=== PATIENT | male | born 1970 | race American Indian/Alaskan Native ===

== ENCOUNTER 2021-05-23 15:57 | Emergency (ER) | payer SELFPAY ==
--- NOTE | 2021-05-23 20:54 | Emergency Department Report ---
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 Patient states that the symptoms of worsening the last 3 days. Patient denies dizziness, syncope, chest pain, shortness of breath, nausea and vomiting, dizziness, syncope, chest pain or shortness of breath, fever and chills or change in vision. MD Complaint: Facial itchy erythematous maculopapular rashes -: Sudden, week(s) (1) Location: face Radiation: non-radiation Severity scale (0 -10): 7 Quality: aching, sharp Consistency: constant Improves with: none Worsens with: none Associated Symptoms: denies other symptoms, rash (facial itchy erythematous maculopapular rashes). denies: confusion, chest pain, cough, diaphoresis, fever/chills, headaches, loss of appetite, malaise, nausea/vomiting, shortness of breath, syncope, weakness Treatments Prior to Arrival: none - Related Data Previous Rx's Medication Instructions Recorded Last Taken Type Clindamycin Phos/Benzoyl Perox 50 gm TP Q12H #1 tube 05/23/21 Unknown Rx [Clindamycin-Benzoyl Perox 1-5%] Doxycycline Hyclate [Lymepak] 100 mg PO Q12H #28 tab 05/23/21 Unknown Rx Ibuprofen [Motrin] 800 mg PO Q8HR PRN #30 tablet 05/23/21 Unknown Rx Allergies Allergy/AdvReac Type Severity Reaction Status Date / Time No Known Allergies Allergy Unverified 05/23/21 16:01 ED Review of Systems ROS: Stated complaint: FACE BREAKING OUT Other details as noted in HPI Constitutional: denies: chills, fever Eyes: denies: eye pain, eye discharge, vision change ENT: denies: ear pain, throat pain Respiratory: denies: cough, shortness of breath, wheezing Cardiovascular: denies: chest pain, palpitations Endocrine: no symptoms reported Gastrointestinal: denies: abdominal pain, nausea, diarrhea Genitourinary: denies: urgency, dysuria Musculoskeletal: denies: back pain, joint swelling, arthralgia Skin: rash (mildly erythematous maculopapular painful rashes on the face and walter), change in color, pruritus. denies: lesions Neurological: denies: headache, weakness, paresthesias Psychiatric: denies: anxiety, depression Hematological/Lymphatic: denies: easy bleeding, easy bruising ED Past Medical Hx - Past Medical History Hx Hypertension: Yes Hx Diabetes: Yes - Medications Home Medications: Home Medications Medication Instructions Recorded Confirmed Last Taken Type Clindamycin Phos/Benzoyl Perox 50 gm TP Q12H #1 tube 05/23/21 Unknown Rx [Clindamycin-Benzoyl Perox 1-5%] Doxycycline Hyclate [Lymepak] 100 mg PO Q12H #28 tab 05/23/21 Unknown Rx Ibuprofen [Motrin] 800 mg PO Q8HR PRN #30 tablet 05/23/21 Unknown Rx ED Physical Exam - General Limitations: No Limitations General appearance: alert, in no apparent distress - Head Head exam: Present: atraumatic, normocephalic, normal inspection - Eye Eye exam: Present: normal appearance, PERRL, EOMI - ENT ENT exam: Present: normal exam, normal orophraynx, mucous membranes moist, TM's normal bilaterally, normal external ear exam, other (Diffuse mild erythematous maculopapular rashes on the face including.) - Neck Neck exam: Present: normal inspection, full ROM. Absent: tenderness - Respiratory Respiratory exam: Present: normal lung sounds bilaterally. Absent: respiratory distress, wheezes, rales, rhonchi, chest wall tenderness, accessory muscle use, decreased breath sounds - Cardiovascular Cardiovascular Exam: Present: regular rate, normal rhythm, normal heart sounds. Absent: systolic murmur, diastolic murmur, rubs, gallop - GI/Abdominal GI/Abdominal exam: Present: soft, normal bowel sounds. Absent: tenderness, guarding, rebound, hyperactive bowel sounds, hypoactive bowel sounds, mass - Extremities Exam Extremities exam: Present: normal inspection, full ROM, normal capillary refill - Back Exam Back exam: Present: normal inspection, full ROM. Absent: tenderness, CVA tenderness (R), CVA tenderness (L), muscle spasm, paraspinal tenderness, vertebral tenderness - Neurological Exam Neurological exam: Present: alert, oriented X3, CN II-XII intact, normal gait, reflexes normal - Psychiatric Psychiatric exam: Present: normal affect, normal mood - Skin Skin exam: Present: warm, dry, intact, normal color, rash (Mild erythematous maculopapular rashes with pustules on the walter and on the face), erythema. 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 Patient states that the symptoms of worsening the last 3 days. In the ED, patient is alert and oriented x3 and is not in distress. Patient history and physical exam findings, the patient was discharged home on pain medications and antibiotics and advised to follow-up with his primary care physician in 7 to 10 days for reevaluation. Patient is advised to return to the ED immediately if symptoms get worse. - Differential Diagnosis Folliculitis; cellulitis; abscess; eczema Critical care attestation.: If time is entered above; I have spent that time in minutes in the direct care of this critically ill patient, excluding procedure time. ED Disposition Clinical Impression: Acute folliculitis, Facial cellulitis Disposition: HOME / SELF CARE / HOMELESS Is pt being admited?: No Does the pt Need Aspirin: No Condition: Stable Instructions: Cellulitis, Adult, [id number], Folliculitis Additional Instructions: Take medication with food, drink plenty fluids and follow-up with your primary care physician in 7 to 10 days for reevaluation. Return to the ED immediately if symptoms get worse. Prescriptions: Clindamycin Phos/Benzoyl Perox [Clindamycin-Benzoyl Perox 1-5%] 50 gm TP Q12H #1 tube Doxycycline Hyclate [Lymepak] 100 mg PO Q12H #28 tab Ibuprofen [Motrin] 800 mg PO Q8HR PRN #30 tablet PRN Reason: Pain , Severe (7-10) Referrals: [facility] [Provider Group] - 3-5 Days Time of Disposition: 20:55 Print Language: INDONESIAN
[2021-05-23 21:36] VITALS: BP 133/87
== END 2021-05-23 21:35 | disposition home or self-care (01) ==
LOC: ED 15:57
DX: L73.9 Follicular disorder, unspecified (principal); L03.211 Cellulitis of face; I10 Essential (primary) hypertension; E11.9 Type 2 diabetes mellitus without complications
CPT/HCPCS: 99282